=== PATIENT | female | born 1950 | race Caucasian/White ===

== ENCOUNTER → 2019-05-03 | Outpatient (CLI) | payer MEDICARE, OTHER ==
[~2019-05-03] MED LIST: ASCO500 PO; ASPI81CH PO; BUTASPCAF; CEPH500 PO; Citalopram HBr40 MG PO; ENOX40I SC; FOLATE; GLUC500 PO; LOSHYD PO; MELA3 PO; Norco 5-325 Ta1 EACH PO; OXYACE5T PO; PROBIOTIC1 EAC1 PO; Pravastatin Sod40 MG PO; VITAMIN D
== END | disposition home or self-care (01) ==
LOC: LAB SHORT 13:32 → PLD 13:32
DX: D21.21 Benign neoplasm of connective and other soft tissue of right lower limb, including hip (principal); M79.604 Pain in right leg
CPT/HCPCS: 88304

== ENCOUNTER 2020-11-28 08:45 | Day surgery (SDC) | payer MEDICARE, OTHER ==
[~2020-11-28 08:45] MED LIST changes: +CALCIUM ACETAT667 MG; +CENTRUM SILVER1 EAC2; +CITALOPRAM HBR10 MG; +ERGO400; +KETO.5OPSO; +KRILL OIL500 MG; +LOSA25; +MELATONIN 3 MG1 EACH; +OCUFLOX5 M3; +PRED FORTE5 M1
[2020-11-28] MEDS ORDERED: Norco 5-325 Ta1 EACH PO (09:09)
--- NOTE | 2020-11-28 09:13 | NUR ---
11/28/20 0913 Duc Cm CALL LIGHT WITHIN REACH
== END 2020-11-28 10:57 | disposition home or self-care (01) ==
LOC: ORSCSDS 08:45
PROVIDERS: Ophthalmology
PROC: 08RJ3JZ Replacement of Right Lens with Synthetic Substitute, Percutaneous Approach (ICD-10-PCS; principal; 2020-11-28 10:00)
DX: H25.11 Age-related nuclear cataract, right eye (principal); I10 Essential (primary) hypertension; K21.9 Gastro-esophageal reflux disease without esophagitis; Z87.891 Personal history of nicotine dependence; Z79.899 Other long term (current) drug therapy; H40.9 Unspecified glaucoma
CPT/HCPCS: J2001; J2250; J3010; J3301; J7040; V2632

== ENCOUNTER 2023-01-23 08:39 | Day surgery (SDC) | payer OTHER ==
[~2023-01-23] VITALS: Ht 162.6 cm; Wt 82.8 kg
[2023-01-23] MEDS ORDERED: ROSU10TA PO (09:08)
--- NOTE | 2023-01-23 09:13 | NUR ---
01/23/23 0913 RENEE MURRAY [id number] P:[id number] CALL LIGHT IN REACH, PRE OP TEACHING COMPLETED
== END 2023-01-23 11:11 | disposition home or self-care (01) ==
LOC: ORSCSDS 08:39
PROVIDERS: Ophthalmology
PROC: 08DK3ZZ Extraction of Left Lens, Percutaneous Approach (ICD-10-PCS; principal; 2023-01-23 10:00)
DX: H25.12 Age-related nuclear cataract, left eye (principal); Z96.1 Presence of intraocular lens; I10 Essential (primary) hypertension; K21.9 Gastro-esophageal reflux disease without esophagitis; Z87.891 Personal history of nicotine dependence; H35.30 Unspecified macular degeneration; F32.A Depression, unspecified; Z79.899 Other long term (current) drug therapy
CPT/HCPCS: J2001; J2250; J3010; J3301; J7040; V2632

== ENCOUNTER 2024-09-29 08:54 | Day surgery (SDC) | payer OTHER ==
[2024-09-29] VITALS (19 sets, daily range): BP systolic 102–149; BP diastolic 55–94
[~2024-09-29] VITALS: Ht 162.6 cm; Wt 79.2 kg
[~2024-09-29 08:54] MED LIST changes: +Amlodipine Bes2.5 MG PO; +LOSARTAN-HCTZ1 EACH PO; +NS 500 ML IV SCH; +ROSU10TA PO; +Vitamin D1000 UNI1 PO
--- NOTE | 2024-09-29 09:22 | NUR ---
History, Chart, Medications and Allergies reviewed before start of procedure. Patient states colon prep results clear. Patient confirms NPO status and agrees with scheduled surgery. Pre-Op teaching done. Pt verbalizes understanding. Lungs clear T/O to Auscultation.
[2024-09-29] MEDS ORDERED: propofoL 40 ML IV ONE (09:23)
--- NOTE | 2024-09-29 09:38 | NUR ---
09/29/24 0938 Brett Burdick CONFIRMED AND REVIEWED H&P, MEDCICATIONS, ALLERGIES, MEDICAL HISTORY, RESPIRATORY HISTORY, VITAL SIGNS, 3-LEAD EKG, CONSENTS, AND PHYSICIAN ORDERS. PATIENT CONFIRMS NPO STATUS AND AGREES WITH SCHEDULED PROCEDURE. MONITOR INTACT WITH CONTINUOUS PULSE OXIMETRY, CAPNOGRAPHY, 3-LEAD EKG, INTERMITTENT BP. SUPPLEMENTAL O2 TO BE TITRATED THROUGHOUT PROCEDURE TO MAINTAIN O2 SATURATION ABOVE 90%. PATIENT DETERMINED TO BE ASA APPROPRIATE FOR PROPOFOL SEDATION PRIOR TO START OF PROCEDURE BY DR. TRUJILLO
--- NOTE | 2024-09-29 10:01 | NUR ---
PT TO DAY SURGERY STEP DOWN FROM COLONOSCOPY; BEDSIDE REPORT RECEIVED. PT IS AWAKE, ALERT AND ORIENTED; ABLE TO MOVE SELF IN BED. PT HAS NO COMPLAINTS.
--- NOTE | 2024-09-29 10:12 | NUR ---
PT TOLERATING PO FLUIDS WELL. Discharge instructions reviewed with patient. Patient verbalizes understanding. Copy given to patient to take home. Patient States Post-Procedure ride home has been arranged.
--- NOTE | 2024-09-29 10:22 | NUR ---
Patient up to Ambulate independently. Gait steady. Discharged via wheelchair to private car for ride home.
== END 2024-09-29 10:23 | disposition home or self-care (01) ==
LOC: ORSCMMR 08:54 → ORD 10:00 → ORSCMMR 10:23
PROVIDERS: Internal Medicine Gastroenterology
PROC: 0DBN8ZX Excision of Sigmoid Colon, Via Natural or Artificial Opening Endoscopic, Diagnostic (ICD-10-PCS; principal; 2024-09-29 10:00)
DX: Z12.11 Encounter for screening for malignant neoplasm of colon (principal); D12.5 Benign neoplasm of sigmoid colon; Z80.0 Family history of malignant neoplasm of digestive organs; Z86.0102 Personal history of hyperplastic colon polyps; I10 Essential (primary) hypertension; E78.00 Pure hypercholesterolemia, unspecified; F32.A Depression, unspecified; Z79.899 Other long term (current) drug therapy; K57.30 Diverticulosis of large intestine without perforation or abscess without bleeding
CPT/HCPCS: 88305; J2704; J7040